=== PATIENT | female | born 1940 | race Caucasian/White ===

== ENCOUNTER → 2016-10-01 | Outpatient (CLI) | payer OTHER ==
[2016-10-01 14:19] LABS: BLOOD UREA NITROGEN 20 mg/dl (7-18); BUN/CREATININE RATIO 21.1 (10-20); CALCIUM 9.3 mg/dl (8.5-10.1); CARBON DIOXIDE 28 mmol/L (21-32); CHLORIDE 108 mmol/L (98-107); CREATININE 0.95 mg/dl (0.60-1.20); GLUCOSE 99 mg/dl (70-99); POTASSIUM 3.8 mmol/L (3.5-5.1); SODIUM 144 mmol/L (136-145)
[2016-10-01 14:23] LABS: CHOLESTEROL 143 mg/dl (0-200); CHOLESTEROL/HDL RATIO 3.2; HDL CHOLESTEROL 45 mg/dl; LDL CHOLESTEROL CALCULATED 75 mg/dl; TRIGLYCERIDES 114 mg/dl (0-150); VERY LOW DENSITY LIPOPROT CALC 23 mg/dl
== END | disposition home or self-care (01) ==
LOC: C.LABMFLN 08:36
PROVIDERS: ATTEND Internal Medicine Cardiovascular Disease
DX: I25.10 Atherosclerotic heart disease of native coronary artery without angina pectoris (principal); E78.5 Hyperlipidemia, unspecified

== ENCOUNTER → 2016-10-11 | Outpatient (CLI) | payer OTHER ==
[~2016-10-11] MED LIST: ASPI81TA28 PO; ATOR-26 PO; HYDR25TA5 PO; LISI40TA PO; NIFE30TA PO; NTRGSL/4 UT; TNR50 PO
[2016-10-11 13:31] LABS: BLOOD UREA NITROGEN 24 mg/dl (7-18); BUN/CREATININE RATIO 24.8 (10-20); CALCIUM 9.3 mg/dl (8.5-10.1); CARBON DIOXIDE 26 mmol/L (21-32); CHLORIDE 110 mmol/L (98-107); CREATININE 0.97 mg/dl (0.60-1.20); GLUCOSE 99 mg/dl (70-99); POTASSIUM 3.8 mmol/L (3.5-5.1); SODIUM 145 mmol/L (136-145)
[2016-10-11 13:42] LABS: ESTIMATED AVERAGE GLUCOSE 126 mg/dl; HA1C FLAG Normal (Normal)
== END | disposition home or self-care (01) ==
LOC: C.LABMFLN 12:02
PROVIDERS: ATTEND Family Medicine
DX: Z01.818 Encounter for other preprocedural examination (principal); R73.9 Hyperglycemia, unspecified

== ENCOUNTER → 2017-04-04 | Outpatient (CLI) | payer OTHER ==
[2017-04-04 13:34] LABS: CHOLESTEROL/HDL RATIO 2.5
== END | disposition home or self-care (01) ==
LOC: C.LABMFLN 06:57
PROVIDERS: ATTEND Nurse Practitioner Family
DX: I25.10 Atherosclerotic heart disease of native coronary artery without angina pectoris (principal); E78.5 Hyperlipidemia, unspecified; I10 Essential (primary) hypertension

== ENCOUNTER 2017-05-10 08:15 | Emergency (ER) | payer OTHER ==
[~2017-05-10] VITALS: Ht 157.5 cm; Wt 72.8 kg
[2017-05-10] MEDS ORDERED: SODIUM CHLORIDE 0.9% 1000ML 1,000 ML IV SCH (08:22)
--- NOTE | 2017-05-10 08:24 | EMERGENCY ROOM VISIT NOTE ---
History Report prepared by Mireya: Ke Aranda Under the Supervision of: Dr. Fidencio Harp M.D. First contact with patient: 08:20 Chief Complaint: STROKE SYMPTOMS Stated Complaint: STROKE ALERT History of Present Illness The patient is a 76 year old with a cardiac stent who presents to the Emergency Room via [facility] with complaints of persistent stroke symptoms that started upon waking this morning. Per [facility], the patient's last well-known time was 1999 last night. The patient has been having right-sided weakness. She has been noted to have a protected airway the entire time. History limited secondary to patient's stroke symptoms. Source of History: nursing staff, other ([facility]) History Limited By: other (stroke symptoms) Onset: Upon waking this morning Position: other (global - stroke symptoms) Symptom Intensity: last well-known time was 1999 last night Timing: other (persistent) Associated Symptoms: + weakness (right-sided) Note: Associated symptoms: Airway protected entire time. Review of Systems All systems have been listed, reviewed, and are negative other than those previously mentioned. Please see Additional Medical History Sheet. Past Medical & Surgical Medical Problems: (1) Heart disease Surgical Problems: (1) History of heart artery stent Family History Unobtainable Social History Marital Status: Housing Status: lives with family Occupation Status: retired Current/Historical Medications Scheduled Aspirin (Aspirin Ec), 81 MG PO QAM Atenolol (Atenolol), 50 MG PO QAM Atorvastatin (Lipitor), 80 MG PO QPM Hydrochlorothiazide (Hydrochlorothiazide), 12.5 MG PO QAM Lisinopril (Zestril), 40 MG PO QAM Nifedipine (Afeditab Cr), 30 MG PO QAM Nitroglycerin (Nitrostat), 0.4 MG UT PRN Allergies Coded Allergies: No Known Allergies (Unverified , 05/10/17) Physical Exam Vital Signs Date Time Temp Pulse Resp B/P (MAP) Pulse Ox O2 Delivery O2 Flow Rate FiO2 05/10/17 10:21 60 16 195/94 98 05/10/17 09:34 60 16 194/92 98 Nasal Cannula 2.0 05/10/17 09:30 91 Room Air 05/10/17 08:42 98 Nasal Cannula 05/10/17 08:39 64 05/10/17 08:33 36.2 70 18 199/88 98 Nasal Cannula 2.0 05/10/17 08:30 100 Nasal Cannula 2.0 Physical Exam GENERAL: Patient is minimally responsive to voice, follows some very simple commands. Patient is nonverbal. SKIN: No erythema, pallor, cyanosis or rash HEENT: Normal head. Patient has left gaze preference. LUNGS: Patient has blowing respirations. No wheezes, no rales, no rhonchi. HEART: No murmurs. No gallops. No rubs ABDOMEN: Soft and nontender. EXTREMITIES: No signs of trauma. No pedal or pretibial edema. No calf or thigh tenderness. NEUROLOGIC: Patient is able to move her left arm minimally. Patient has no movement of her right arm and both legs. NIH stroke score is 29. Medical Decision & Procedures ER Provider Diagnostic Interpretation: CT results are interpretations by the radiologist and per my review. HEAD WITHOUT CONTRAST (CT) CT DOSE: 537.48 mGy.cm HISTORY: Stroke Stroke TECHNIQUE: Multiaxial CT images of the head were performed without the use of intravenous contrast. A dose lowering technique was utilized adhering to the principles of ALARA. Comparison: None. Findings: The paranasal sinuses and mastoid air cells are clear. Old right occipital infarct. Density characteristics otherwise are unremarkable. Ventricular system is midline. No evidence for acute intracranial hemorrhage. No deviation of midline structures. Impression: No acute intracranial abnormality. Old right occipital infarct. The above report was generated using voice recognition software. It may contain grammatical, syntax or spelling errors. Electronically signed by: Francisco Romo M.D. 05/10/2017 8:31 AM Dictated Date/Time: 05/10/2017 8:30 AM HEAD ANGIO WITH CONTRAST CLINICAL HISTORY: Stroke Mental status change TECHNIQUE: CTA COMPARISON STUDY: None FINDINGS: Findings highly suggestive of thrombus formation within the distal left internal carotid artery with involvement of the cavernous component of the left internal carotid artery as well as the proximal to mid left middle cerebral vessel. Minimal flow around the thrombus. Severely compromised flow throughout the bulk of the left cerebral arterial vasculature. The right cerebral arterial vasculature shows mild atherosclerotic change although a significant component of stenotic change is not seen. The anterior cerebral vessels are fed almost exclusively from the right cerebral distribution. There is moderate atherosclerotic change of the of the vertebral basilar system although a significant stenotic process is not appreciated. IMPRESSION: 1. Filling defect/thrombus formation within the left internal carotid artery distally, cavernous component of the internal carotid artery, as well as bulk of the left middle cerebral vasculature. 2. This appearance is highly suggestive of thrombus formation with near complete occlusion of these vessels. 3. Severely compromised arterial vascular flow to the left cerebral hemisphere. 4. Mild scattered atelectatic change of the right cerebral vasculature although a significant right sided component of arterial occlusive change is not appreciated. 5. This report was phoned to Dr. Harp in the emergency room The above report was generated using voice recognition software. It may contain grammatical, syntax or spelling errors. Electronically signed by: Francisco Romo M.D. 05/10/2017 9:21 AM Dictated Date/Time: 05/10/2017 9:13 AM Laboratory Results 05/10/17 08:57 Red Blood Count 4.45, Mean Corpuscular Volume 97.5, Mean Corpuscular Hemoglobin 33.7, Mean Corpuscular Hemoglobin Concent 34.6, Mean Platelet Volume 13.1, Neutrophils (%) (Auto) 84.6, Lymphocytes (%) (Auto) 13.3, Monocytes (%) (Auto) 1.6, Eosinophils (%) (Auto) 0.1, Basophils (%) (Auto) 0.2, Neutrophils # (Auto) 10.74, Lymphocytes # (Auto) 1.69, Monocytes # (Auto) 0.20, Eosinophils # (Auto) 0.01, Basophils # (Auto) 0.03 05/10/17 08:57 Test 05/10/17 08:33 05/10/17 08:38 05/10/17 08:57 Bedside Prothrombin Time INR 1.0 (0.9-1.1) Bedside Glucose 167 mg/dl (70-90) White Blood Count 12.70 K/uL (4.8-10.8) Red Blood Count 4.45 M/uL (4.2-5.4) Hemoglobin 15.0 g/dL (12.0-16.0) Hematocrit 43.4 % (37-47) Mean Corpuscular Volume 97.5 fL (80-100) Mean Corpuscular Hemoglobin 33.7 pg (25-34) Mean Corpuscular Hemoglobin Concent 34.6 g/dl (32-36) Platelet Count 155 K/uL (130-400) Mean Platelet Volume 13.1 fL (7.4-10.4) Neutrophils (%) (Auto) 84.6 % Lymphocytes (%) (Auto) 13.3 % Monocytes (%) (Auto) 1.6 % Eosinophils (%) (Auto) 0.1 % Basophils (%) (Auto) 0.2 % Neutrophils # (Auto) 10.74 K/uL (1.4-6.5) Lymphocytes # (Auto) 1.69 K/uL (1.2-3.4) Monocytes # (Auto) 0.20 K/uL (0.11-0.59) Eosinophils # (Auto) 0.01 K/uL (0-0.5) Basophils # (Auto) 0.03 K/uL (0-0.2) RDW Standard Deviation 48.5 fL (36.4-46.3) RDW Coefficient of Variation 13.6 % (11.5-14.5) Immature Granulocyte % (Auto) 0.2 % Immature Granulocyte # (Auto) 0.03 K/uL (0.00-0.02) Prothrombin Time 10.7 SECONDS (9.0-12.0) Prothromb Time International Ratio 1.0 (0.9-1.1) Activated Partial Thromboplast Time 27.3 SECONDS (21.0-31.0) Partial Thromboplastin Ratio 1.1 Anion Gap 6.0 mmol/L (3-11) Est Creatinine Clear Calc Drug Dose 52.4 ml/min Estimated GFR () 77.7 Estimated GFR (Non- 67.0 BUN/Creatinine Ratio 21.4 (10-20) Calcium Level 9.3 mg/dl (8.5-10.1) Total Creatine Kinase 56 U/L (26-192) Creatine Kinase MB 1.2 ng/ml (0.5-3.6) Creatine Kinase MB Ratio 2.1 (0-3.0) Troponin I 0.099 ng/ml (0-0.045) Laboratory results as stated above per my review. Medications Administered Medications (Trade) Dose Ordered Sig/Vic Route Start Time Stop Time Status Last Admin Dose Admin Sodium Chloride 1,000 ml @ 50 mls/hr Q20H IV 05/10/17 08:22 05/10/17 10:42 DC 05/10/17 09:23 50 MLS/HR ECG Indication: weakness Rate (beats per minute): 61 Rhythm: sinus rhythm Findings: no ectopy, other (nonspecific ST abnormality) ED Course 08: Past medical records reviewed. The patient was evaluated in room B1. A limited history and physical examination was performed. 0822: Ordered NSS 1000 ml @ 50 mls/hr IV. 0842: I discussed the patient with Dr. Yusuf Miller stroke neurologist - she suggested to get a CT profusion scan. 920: I discussed the patient with Dr. Yusuf Miller stroke neurologist - she will accept the patient in transfer via [facility]. 0925: Upon reevaluation, the patient is resting. I discussed today's findings with the patient. The patient will be transferred to [facility] via [facility]. Medical Decision I considered multiple diagnoses including CVA, TIA, hemorrhagic bleed, metabolic disorder. Multiple labs, EKG and imaging were obtained. Please see above. 2 calls were made to [facility] tele stroke neurologist. The patient arrived here via helicopter from the field where she was found to have strokelike symptoms. Last well-known time was 8 PM yesterday. The patient is unable to provide any history. She is nonverbal. NIH stroke score was 29. In light of the extended last well-known time the patient is not a good candidate for TPA. A stroke alert was called and I discussed care with Dr. Goldberg at [facility]. Patient did have a CT followed by a CTA study. The patient appears to have thrombi in the internal carotid and middle cerebral vessels. In light of that study Dr. Goldberg felt that she would be a good candidate for an intervention. The patient was transferred to [facility] via helicopter. Medication Reconcilliation Current Medication List: was personally reviewed by me Blood Pressure Screening Patient's blood pressure: Elevated blood pressure Requires follow-up with workforce development program director. Consults Time Called: [phone] Consulting Physician: Angela stroke neurologist Returned Call: [phone] I discussed the patient with Dr. Yusuf Miller stroke neurologist - she suggested to get a CT profusion scan. Additional Consults: Time Called: [phone] Consulted Physician: Dr. Yusuf Miller stroke neurologist Returned Call: [phone] Additional Comments: I discussed the patient with Dr. Yusuf Miller stroke neurologist - she will accept the patient in transfer via [facility]. Impression Primary Impression: Cerebral artery occlusion Additional Impressions: Stroke Elevated troponin Critical Care I have personally spent greater than 45 minutes of critical care time in the direct management of this patient. This includes bedside care, interpretation of diagnostic studies, and testing, discussion with consultants, patient, and family members, and other required patient management activities. This 45 minutes is in excess of all separately billable procedures. Scribe Attestation The scribe's documentation has been prepared under my direction and personally reviewed by me in its entirety. I confirm that the note above accurately reflects all work, treatment, procedures, and medical decision making performed by me. Departure Information Dispostion Transfer Acute Care Facility (to [facility] via [facility]) Patient Instructions My [facility] Time Last Known Well 1999 last night Stroke t-PA Criteria Reviewed Does NOT meet criteria for t-PA Reason t-PA Not Given Treatment not indicated (due to last known well time) Problem Qualifiers Additional Impressions:
--- NOTE | 2017-05-10 08:32 | DIAGNOSTIC IMAGING REPORT ---
HEAD WITHOUT CONTRAST (CT) CT DOSE: 537.48 mGy.cm HISTORY: Stroke Stroke TECHNIQUE: Multiaxial CT images of the head were performed without the use of intravenous contrast. A dose lowering technique was utilized adhering to the principles of ALARA. Comparison: None. Findings: The paranasal sinuses and mastoid air cells are clear. Old right occipital infarct. Density characteristics otherwise are unremarkable. Ventricular system is midline. No evidence for acute intracranial hemorrhage. No deviation of midline structures. Impression: No acute intracranial abnormality. Old right occipital infarct. The above report was generated using voice recognition software. It may contain grammatical, syntax or spelling errors. Electronically signed by: Francisco Romo M.D. 05/10/2017 8:31 AM Dictated Date/Time: 05/10/2017 8:30 AM
[2017-05-10 08:33] VITALS: TEMP 36.2; Ht 157.5 cm; Wt 72.8 kg
[2017-05-10] MEDS ORDERED: TNR50 PO (09:06)
[2017-05-10] MEDS ORDERED: LISI40TA PO (09:06)
[2017-05-10] MEDS ORDERED: HYDR25TA5 PO (09:06)
[2017-05-10] MEDS ORDERED: ATOR-26 PO (09:06)
[2017-05-10] MEDS ORDERED: NTRGSL/4 UT (09:06)
[2017-05-10] MEDS ORDERED: NIFE30TA PO (09:06)
[2017-05-10] MEDS ORDERED: ASPI81TA28 PO (09:06)
[2017-05-10 09:13] LABS: BASO % 0.2 %; BASO ABS # 0.03 K/uL (0-0.2); COMPLETE YES; EOS % 0.1 %; HEMATOCRIT 43.4 % (37-47); IG% 0.2 %; LYMPH % 13.3 %; LYMPH ABS # 1.69 K/uL (1.2-3.4); MEAN CELL VOLUME 97.5 fL (80-100); MEAN CORPUSCULAR HEMOGLOBIN 33.7 pg (25-34); MEAN CORPUSCULAR HGB CONC 34.6 g/dl (32-36); MEAN PLATELET VOLUME 13.1 fL (7.4-10.4); MONO % 1.6 %; NEUT % 84.6 %; PLATELET COUNT 155 K/uL (130-400); RED BLOOD COUNT 4.45 M/uL (4.2-5.4)
[2017-05-10] MEDS ORDERED: OPTIRAY 320 IV PRN (09:15)
--- NOTE | 2017-05-10 09:22 | DIAGNOSTIC IMAGING REPORT ---
HEAD ANGIO WITH CONTRAST CLINICAL HISTORY: Stroke Mental status change TECHNIQUE: CTA COMPARISON STUDY: None FINDINGS: Findings highly suggestive of thrombus formation within the distal left internal carotid artery with involvement of the cavernous component of the left internal carotid artery as well as the proximal to mid left middle cerebral vessel. Minimal flow around the thrombus. Severely compromised flow throughout the bulk of the left cerebral arterial vasculature. The right cerebral arterial vasculature shows mild atherosclerotic change although a significant component of stenotic change is not seen. The anterior cerebral vessels are fed almost exclusively from the right cerebral distribution. There is moderate atherosclerotic change of the of the vertebral basilar system although a significant stenotic process is not appreciated. IMPRESSION: 1. Filling defect/thrombus formation within the left internal carotid artery distally, cavernous component of the internal carotid artery, as well as bulk of the left middle cerebral vasculature. 2. This appearance is highly suggestive of thrombus formation with near complete occlusion of these vessels. 3. Severely compromised arterial vascular flow to the left cerebral hemisphere. 4. Mild scattered atelectatic change of the right cerebral vasculature although a significant right sided component of arterial occlusive change is not appreciated. 5. This report was phoned to Dr. Harp in the emergency room The above report was generated using voice recognition software. It may contain grammatical, syntax or spelling errors. Electronically signed by: Francisco Romo M.D. 05/10/2017 9:21 AM Dictated Date/Time: 05/10/2017 9:13 AM
[2017-05-10 09:30] VITALS: O2SAT 91
[2017-05-10 09:30] LABS: BUN/CREATININE RATIO 21.4 (10-20); CALCIUM 9.3 mg/dl (8.5-10.1); CREATININE 0.84 mg/dl (0.60-1.20); POTASSIUM 3.8 mmol/L (3.5-5.1)
[2017-05-10 09:31] LABS: PARTIAL THROMBOPLASTIN RATIO 1.1; PROTHROMBIN TIME (PATIENT) 10.7 SECONDS (9.0-12.0)
[2017-05-10 09:41] LABS: CKMB/CK RATIO 2.1 (0-3.0)
[2017-05-10 10:21] VITALS: BP 195/94; PULSE 60; O2SAT 98
== END 2017-05-10 10:18 | disposition short-term general hospital (02) ==
LOC: EDSEX 08:15 → EDBD 08:15 → C.EDB 08:22
DX: I63.50 Cerebral infarction due to unspecified occlusion or stenosis of unspecified cerebral artery (principal); R79.89 Other specified abnormal findings of blood chemistry; Z95.5 Presence of coronary angioplasty implant and graft; Z79.82 Long term (current) use of aspirin